=== PATIENT | male | born 1955 | race Caucasian/White ===

== ENCOUNTER 2021-03-02 07:48 | Outpatient (CLI) | payer BC ==
[2021-03-02] MEDS ORDERED: Iopamidol 370 76% 100 ML VIAL ONE (13:42)
== END 2021-03-02 07:49 | disposition home or self-care (01) ==
LOC: BURCT 07:48
PROVIDERS: ATTEND Family Medicine
DX: Z01.818 Encounter for other preprocedural examination (principal); R22.1 Localized swelling, mass and lump, neck
CPT/HCPCS: 36415; 70491; 82565; Q9967